=== PATIENT | male | born 1970 | race Caucasian/White ===

== ENCOUNTER 2023-10-24 09:12 | Emergency (ER) | payer OTHER ==
[~2023-10-24] VITALS: Ht 177.8 cm; Wt 81.6 kg
[2023-10-24] MEDS ORDERED: ROSU10TA2 PO (09:50)
[2023-10-24 10:10] LABS: *BLOOD, URINE NEGATIVE (NEGATIVE); *CLARITY,URINE CLEAR (CLEAR); *COLOR,URINE YELLOW (YELLOW); *KETONES,URINE 1+ (NEGATIVE); *PROTEIN,URINE 1+ (NEGATIVE); *UROBILINOGEN,URINE 0.2 E.U./dl (NORMAL); LEUKOCYTE ESTERASE ,URINE NEGATIVE (NEGATIVE); NITRITE, URINE NEGATIVE (NEGATIVE); PH,URINE 6.5 (5.0-8.0); UGLUCOSE NEGATIVE (NEGATIVE)
[2023-10-24 10:21] LABS: AMMONIA < 10 umol/L (11-32)
[2023-10-24 10:22] LABS: BASOPHILS % (AUTO) 0.6 % (0.0-2.0); EOSINOPHILS # (AUTO) 0.1 K/uL (0.0-0.7); EOSINOPHILS % (AUTO) 1.7 % (0.0-7.0); HEMATOCRIT 44.8 % (36.7-47.1); LYMPHOCYTES # (AUTO) 1.9 K/uL (0.8-4.8); LYMPHOCYTES % (AUTO) 23.3 % (20.5-51.5); MEAN CORPUSCULAR HEMOGLOBIN 28.9 uug (23.8-33.4); MEAN CORPUSCULAR HGB CONC 34 g/dL (32.5-36.3); MEAN CORPUSCULAR VOLUME 86.4 fL (73.0-96.2); MONOCYTES # (AUTO) 0.7 K/uL (0.1-1.30); MONOCYTES % (AUTO) 8.1 % (0.0-11.0); NEUTROPHILS # (AUTO) 5.3 K/uL (1.8-8.9); NEUTROPHILS % (AUTO) 66.3 % (38.5-71.5); PLATELET COUNT (AUTO) 246 K/uL (152-348); RED BLOOD CELL COUNT(AUTO) 5.19 MIL/uL (4.06-5.63); RED CELL DISTRIBUTION WIDTH 13.6 % (12.1-16.2)
[2023-10-24 10:27] LABS: CALCIUM 9.1 mg/dL (8.5-10.1); CARBON DIOXIDE 27 mmol/L (21-32); CHLORIDE 99 mmol/L (98-107); CREATININE 0.8 mg/dL (0.6-1.3); GLUCOSE 111 mg/dL (74-106); SODIUM SERUM 137 mmol/L (136-145); THYROID STIMULATING HORMONE 1.028 mIU/mL (0.358-3.740); UREA NITROGEN, BLOOD 7 mg/dL (7-18)
[2023-10-24 10:30] LABS: *BILIRUBIN,URIN 1+ (NEGATIVE)
[2023-10-24 10:36] LABS: ALANINE AMINOTRANSFERASE 37 U/L (16-63); ALKALINE PHOSPHATASE 81 U/L (50-136); ASPARTATE AMINOTRANSFERASE 26 U/L (15-37); BILIRUBIN,DIRECT 0.2 mg/dL (0.0-0.2); TOTAL PROTEIN, SERUM 7.8 g/dL (6.4-8.2)
[2023-10-24 10:57] LABS: BACTERIA,URINE MODERATE /HPF (NONE SEEN); MUCUS,URINE MODERATE /LPF (0-FEW); RBC,URINE NONE SEEN /HPF (0-3); WBC,URINE 0-3 /HPF (0-3)
[2023-10-24 11:21] LABS: MAGNESIUM 1.6 mg/dL (1.8-2.4)
[2023-10-24] MEDS ORDERED: THIAMINE HCL 100 MG TABLET ONE (11:26)
[2023-10-24] MEDS: THIAMINE HCL 100 MG TABLET PO ONE (11:26)
[2023-10-24] MEDS ORDERED: CYANOCOBALAMIN 1000 MCG/ML VIAL ONE (11:37)
[2023-10-24] MEDS ORDERED: MAGNESIUM SULFATE/D5W 100 ML ONE ×2 (11:37→12:30)
[2023-10-24] MEDS: CYANOCOBALAMIN 1000 MCG/ML VIAL IM ONE (11:48)
[2023-10-24] MEDS: MAGNESIUM SULFATE/D5W 100 ML IV SCH (11:48)
[2023-10-24 12:16] LABS: ETHANOL < 3 MG/DL (0-10)
[2023-10-24 13:37] VITALS: BP 151/90; TEMP 98.3; O2SAT 100
[2023-10-24] MEDS ORDERED: CHLO25CA22 PO (13:44)
== END 2023-10-24 13:57 | disposition home or self-care (01) ==
LOC: ER 09:17
DX: F23 Brief psychotic disorder (principal); F10.229 Alcohol dependence with intoxication, unspecified; E83.42 Hypomagnesemia; E53.8 Deficiency of other specified B group vitamins; Z79.899 Other long term (current) drug therapy
CPT/HCPCS: 80076; 80048; 81001; 82140; 82607; 83735; 84443; 85025; 84484; 36415; 93005; 99284; 96365; 96366; 87086; 80320; J3475 ×2; A4606; A4663; G0480; J3420